=== PATIENT | male | born 1955 | race Caucasian/White ===

== ENCOUNTER 2018-06-06 15:41 | Outpatient (CLI) | payer OTHER, SELFPAY | END 2018-06-06 16:01 | PROVIDERS: PCP Family Medicine; Visit Provider Family Medicine | DX: I49.9 Cardiac arrhythmia, unspecified (principal); I47.2 Ventricular tachycardia; I49.3 Ventricular premature depolarization | CPT/HCPCS: 93225 ==

== ENCOUNTER 2018-06-10 12:06 | Outpatient (CLI) | payer OTHER, SELFPAY ==
--- NOTE | 2018-06-12 10:32 | HOLTER_ITS ---
HOLTER MONITOR DATE OF DICTATION June 12, 2018 INDICATION Arrhythmias. Analysis period - 48 hours. Baseline sinus rhythm with PVCs. Average heart rates 75 beats per minute. Minimum heart rate 58 beats per minute. Maximum heart rate 102 beats per minute. 3 short bursts of nonsustained VT. The longest 5 beats. Frequent isolated ventricular ectopy accounting for 5.2% of total beats. Rare isolated PACs. No atrial fibrillation or SVT. No significant pauses or tejas arrhythmias. No diary entries. Overall sinus rhythm with frequent ventricular ectopy. Emilia Meeks M.D. ROSALBA/brett T - 06/12/2018
== END 2018-06-10 12:26 ==
PROVIDERS: PCP Family Medicine; Visit Provider Family Medicine
DX: I49.9 Cardiac arrhythmia, unspecified (principal); I47.2 Ventricular tachycardia; I49.3 Ventricular premature depolarization
CPT/HCPCS: 93226

== ENCOUNTER 2018-06-30 17:11 | Observation (INO) | payer OTHER, SELFPAY ==
[2018-06-30] VITALS (33 sets, daily range): BP systolic 118–148; BP diastolic 68–86; PULSE 61–73; RESP 10–22; TEMP 36.4–37.2; O2SAT 93–99
[2018-06-30] MEDS: Normal Saline Flush 10 ML SYR IVP (17:43)
[2018-06-30] MEDS: Lactated Ringers 500 ML IV (17:43)
[2018-06-30 17:47] LABS: Abs Immature Grans 0.02 k/cumm (0.0-0.09); Absolute Basophil Count 0.03 k/cumm (0.0-0.2); Absolute Lymphocyte Count 3.08 k/cumm (1.2-3.4); Absolute Monocyte Count 0.69 k/cumm (0.11-0.7); Absolute Neutrophil Count 3.95 k/cumm (1.2-6.7); Basophils % 0.4; Eosinophils % 2.5; HCT 44.5 % (40.0-50.0); HGB 15.2 g/dL (13.5-17.5); Immature Grans % 0.3; Lymphocytes % 38.6; Mean Corp. HGB Concentration 34.2 g/dL (32.0-36.0); Mean Corpuscular Hemoglobin 31.7 pg (27.0-33.0); Mean Corpuscular Volume 92.9 fL (80-95); Mean Platelet Volume 10.1 fL (8.0-11.0); Monocytes % 8.7; Neutrophils % 49.5; Platelet Count 217 x1000/uL (130-400); RBC 4.79 m/cumm (4.50-6.00); RBC Distribution Width 13.3 % (11.8-14.1); White Blood Cell Count 7.97 k/cumm (4.4-10.8)
[2018-06-30 18:19] LABS: ALT 33 U/L (12-78); AST 17 U/L (15-37); Albumin 3.9 g/dL (3.4-5.0); Alkaline Phosphatase 40 U/L (46-116); Anion Gap 10.5 mmol/L (3-11); BUN 22 mg/dL (7-18); Bilirubin, Total 0.3 mg/dL (0.2-1.0); CO2 29.5 mmol/L (21.0-32.0); CREATININE 0.99 mg/dL (0.70-1.30); Calcium 9.2 mg/dL (8.5-10.1); Chloride 101 mmol/L (98-107); Glucose 148 mg/dL (70-100); Magnesium 1.8 mg/dL (1.8-2.4); NT-proBNP 114 pg/mL; Potassium 3.5 mmol/L (3.5-5.1); Sodium 141 mmol/L (136-145)
[2018-06-30 18:20] LABS: Troponin I < 0.02 ng/mL (0.00-0.06)
[2018-06-30 19:14] LABS: TSH (W/Ref FT4) 2.55 uIU/mL (0.358-3.74)
--- NOTE | 2018-06-30 19:26 | ED.GENADUL_ITS ---
Discharge Plan Disposition Patient Disposition: [facility] INPATIENT Condition: Serious Discharge Details Chief Complaint: Dizzy/Sync Clinical Impression: Pre-syncope, Acute electrocardiogram changes Primary Care Provider: Dejan Kelley ED Provider: Moody Patton Home Meds and New Rx's Prescriptions: No Action multivitamin [Once Daily] 1 EACH tablet 1 ea PO DAILY RF: 0 aspirin [Aspir-81] 81 MG tablet,delayed release (DR/EC) 81 mg PO DAILY RF: 0 ibuprofen 200 MG tablet 2 - 4 tab-cap PO PRN RF: 0 FreeStyle Lite Strips 1 EACH strip 1 ea Miscellaneous DAILY Qty: 90 RF: 3 glipizide 10 MG tablet extended release 24hr 10 mg PO DAILY Qty: 90 RF: 3 Farxiga 10 MG tablet 10 mg PO DAILY Qty: 30 RF: 11 metformin 1,000 mg tablet 1,000 mg PO BID Qty: 180 RF: 3 Medical Decision Making 62yo m with h/o DM and family h/o heart disease here with presynope, frequent episode of dizziness over the past few month. No CP. Currently hemodynamically stable but recently had episode of bradycardia in PCP office. I obtained and reviewed cardiac holter monitor from earlier this month: 3 short bursts of nonsustained VT, longest 5 beats. Concern for arrhythmia. Consider intermittent VT vs SSS. Consider ACS. ecg reviewed and interpreted by me: Sinus rhythm 60 bpm, poor R wave progression, T waves noted to be inverted with subtle depression in lead II, 3, aVF as well as V5 and V6. T wave findings in lead II, 3, aVF new compared to prior EKG from 06/04/2018. Labs reviewed and nondiagnostic. Initial troponin negative. Patient reassessed and continues to be symptom-free with no chest pain. Plan to admit for further monitoring, serial enzymes, will need stress testing, cardiology consult. 19:48 --I spoke with Dr. Ryan who will admit the patient. He requested bridging orders be placed to the floor on telemetry. Care transition to Dr. oviedo and at 748p. HPI General Mode of arrival: ambulatory . Date/Time Provider Initiated Documentation: 06/30/18 17:18 . Limitations to Documentation: no limitations . Information obtained by: patient . HPI Narrative: 62-year-old male presents with chief complaint of dizziness. Patient notes that he has had intermittent episodes of dizziness over the past few months. When he has these episodes he is typically standing and they are fairly brief. Today he had more episodes than usual. He expands about 3-4 episodes. The last episode occurred shortly before arrival in the emerge [facility] and was severe. He notes that he was standing and suddenly felt that had to lean against his truck. He felt like he was going to pass out. He had associated nausea and vomiting. His son helped him to the ground and noted that he appeared pale. Symptoms improved after a few minutes. He continues to feel fatigued. He denies CP and SOB. He was seen by his PCP a few weeks ago and noted to have an episode of bradycardia in the 30s in the office. He has a 48 holter monitor and is unsure of results. Related Data Home Medications Medication Instructions Recorded Confirmed aspirin [Aspir 81] 81 mg PO DAILY tab-cap 11/12/12 06/13/18 multivitamin [Once Daily] 1 ea PO DAILY 11/12/12 06/13/18 ibuprofen 2 - 4 tab-cap PO PRN 10/17/16 06/13/18 blood sugar diagnostic [Freestyle #90 strip 08/04/17 06/13/18 Lite Test Strips] dapagliflozin [Farxiga] 10 mg PO DAILY #30 tab-cap 10/01/17 06/13/18 glipizide 10 mg PO DAILY #90 tab-cap 10/01/17 06/13/18 metformin 1,000 mg tablet 1,000 mg PO BID #180 tab-cap 05/29/18 06/13/18 Previous Rx's Medication Instructions Recorded blood sugar diagnostic [Freestyle #90 strip 08/04/17 Lite Test Strips] dapagliflozin [Farxiga] 10 mg PO DAILY #30 tab-cap 10/01/17 glipizide 10 mg PO DAILY #90 tab-cap 10/01/17 metformin 1,000 mg tablet 1,000 mg PO BID #180 tab-cap 05/29/18 Allergies Allergy/AdvReac Type Severity Reaction Status Date / Time fluvoxamine Allergy Unknown Unverified 06/13/18 16:12 pseudoephedrine AdvReac Intermediate DIZZINESS Unverified 06/13/18 16:12 General Stated Complaint: Dizzy/Sync JOCELYN: 3 Review of Systems Constitutional Denies fever(s) Cardiovascular Reports chest pain PFSH Medical History Diabetes Hypertension Social History Smoking/Tobacco Use Status: Former Tobacco Use Exam Const General: cooperative and no acute distress HENMT Head: normocephalic and atraumatic Mouth: moist mucous membranes Eyes Conjunctivae: normal conjunctivae Sclera: normal sclerae EOM: EOM intact bilaterally Neck Neck: trachea midline and supple Resp Auscultation: clear to auscultation bilaterally, no rales, no rhonchi and no wheezes Cardio Jugular venous pressure: no JVD Rate: regular rate and not tachycardic Rhythm: regular rhythm GI Palpation: soft, not firm, no guarding, no masses, not rigid and nontender Skin General skin exam: no rashes or lesions noted Neuro General: alert, awake, oriented x3 and tone normal Extrem General: no edema Psych Appearance: grossly normal Mental Status: mental status grossly normal Speech and Movement: speech and movement normal Course Vital Signs Temperature 36.4 C L 06/30/18 17:15 Pulse 64 06/30/18 17:15 Respiratory Rate 14 06/30/18 17:15 Blood Pressure 144/86 H 06/30/18 17:15 Pulse Oximetry 98 06/30/18 17:15 Temperature 36.4 C L 06/30/18 17:15 Temperature Source Temporal Artery Scan 06/30/18 17:15 Pulse 67 06/30/18 18:31 Pulse 67 06/30/18 18:40 Respiratory Rate 12 06/30/18 18:40 Respiratory Effort 06/30/18 17:54 Respiratory Depth Normal 06/30/18 17:45 Blood Pressure 129/71 06/30/18 18:31 Blood Pressure Mean 86 06/30/18 18:31 Blood Pressure Position Sitting 06/30/18 17:15 Pulse Oximetry 96 06/30/18 18:40 Oxygen Delivery Method Room Air 06/30/18 17:15 Oxygen Flow Rate 0 06/30/18 17:15 Pain Level 0 06/30/18 17:15 Lab/Test Results Lab/Test Results: Laboratory Tests Range/Units 06/30/18 06/30/18 06/30/18 17:30 17:30 17:30 WBC (4.4-10.8) k/cumm 7.97 RBC (4.50-6.00) m/cumm 4.79 Hgb (13.5-17.5) g/dL 15.2 Hct (40.0-50.0) % 44.5 MCV (80-95) fL 92.9 MCH (27.0-33.0) pg 31.7 MCHC (32.0-36.0) g/dL 34.2 RDW (11.8-14.1) % 13.3 Plt Count (130-400) x1000/uL 217 MPV (8.0-11.0) fL 10.1 Immature Gran % 0.3 Neutrophils % 49.5 Lymphocytes % 38.6 Monocytes % 8.7 Eosinophils % 2.5 Basophils % 0.4 Absolute Neutrophils (1.2-6.7) k/cumm 3.95 Absolute Lymphocytes (1.2-3.4) k/cumm 3.08 Absolute Monocytes (0.11-0.7) k/cumm 0.69 Absolute Eosinophils (0.0-0.7) k/cumm 0.20 Absolute Basophils (0.0-0.2) k/cumm 0.03 Sodium (136-145) mmol/L 141 Potassium (3.5-5.1) mmol/L 3.5 Chloride (98-107) mmol/L 101 Carbon Dioxide (21.0-32.0) mmol/L 29.5 Anion Gap (3-11) mmol/L 10.5 BUN (7-18) mg/dL 22 H Creatinine (0.70-1.30) mg/dL 0.99 Estimated GFR/1.73 m2 (mL/min/1.73m2) >= 60.00 Glucose (70-100) mg/dL 148 H Calcium (8.5-10.1) mg/dL 9.2 Magnesium (1.8-2.4) mg/dL 1.8 Total Bilirubin (0.2-1.0) mg/dL 0.3 AST (15-37) U/L 17 ALT (12-78) U/L 33 Alkaline Phosphatase (46-116) U/L 40 L Troponin I (0.00-0.06) ng/mL < 0.02 NT-Pro-B Natriuret Pep ( - 299) pg/mL 114 Total Protein (6.4-8.2) g/dL 7.0 Albumin (3.4-5.0) g/dL 3.9 TSH (0.358-3.74) uIU/mL 2.55
[2018-06-30 21:48] LABS: Troponin I 0.02 ng/mL (0.00-0.06)
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
[2018-07-01] VITALS (9 sets, daily range): BP systolic 128–156; BP diastolic 73–91; PULSE 53–76; RESP 16–18; TEMP 36.1–37.6; O2SAT 95–98
[2018-07-01 01:15] LABS: Troponin I 0.02 ng/mL (0.00-0.06)
[2018-07-01 07:22] LABS: Abs Immature Grans 0.03 k/cumm (0.0-0.09); Absolute Basophil Count 0.03 k/cumm (0.0-0.2); Absolute Eosinophil Count 0.23 k/cumm (0.0-0.7); Absolute Lymphocyte Count 2.87 k/cumm (1.2-3.4); Absolute Monocyte Count 0.62 k/cumm (0.11-0.7); Absolute Neutrophil Count 4.63 k/cumm (1.2-6.7); Basophils % 0.4; Eosinophils % 2.7; HCT 46.2 % (40.0-50.0); HGB 15.7 g/dL (13.5-17.5); Immature Grans % 0.4; Lymphocytes % 34.1; Mean Corpuscular Hemoglobin 31.6 pg (27.0-33.0); Mean Platelet Volume 10.1 fL (8.0-11.0); Monocytes % 7.4; Platelet Count 229 x1000/uL (130-400); RBC 4.97 m/cumm (4.50-6.00); RBC Distribution Width 13.4 % (11.8-14.1); White Blood Cell Count 8.41 k/cumm (4.4-10.8)
[2018-07-01 07:24] LABS: Anion Gap 10.6 mmol/L (3-11); BUN 20 mg/dL (7-18); CO2 25.4 mmol/L (21.0-32.0); CREATININE 0.91 mg/dL (0.70-1.30); Chloride 104 mmol/L (98-107); Glucose 183 mg/dL (70-100); Potassium 4.2 mmol/L (3.5-5.1); Sodium 140 mmol/L (136-145)
[2018-07-01 07:30] LABS: Cholesterol 150 mg/dL (50-200); HDL Cholesterol 30 mg/dL (40-60); LDL CHOLESTEROL 81 mg/dL (<100); Triglyceride 363 mg/dL (30-150)
[2018-07-01 07:56] LABS: Hemoglobin A1C 7.9 % (4.5-6.2)
[2018-07-01] MEDS: Aspirin E.C. 81 MG TABEC PO (09:06)
[2018-07-01] MEDS: Multivitamin TAB 1 TAB PO (09:06)
--- NOTE | 2018-07-01 09:15 | MERGE_ITS ---
*[facility]* *[facility]* [address] [place] [address] Date of study: 07/01/2018 Transthoracic Echocardiography M-mode, complete 2D, complete spectral Doppler, and color Doppler *STUDY CONCLUSIONS* Summary: 1. Left ventricle: The cavity size was normal. Wall thickness was normal. Systolic function was normal. The estimated ejection fraction was 55-60%. Wall motion was normal; there were no regional wall motion abnormalities. Some parameters suggest diastolic dysfunction. 2. Left atrium: The atrium was mildly dilated. 3. Right ventricle: The cavity size was normal. Wall thickness was normal. Systolic function was normal. 4. Atrial septum: There was a possible, very small patent foramen ovale. 5. Pulmonary arteries: Pulmonary systolic pressure was increased, in the range of 35mm Hg to 40mm Hg. *PATIENT PRESENTATION* Height: 172.7cm ((68in) ) S/D Pressure: 156 / 91 Weight: 80.3kg ((176.6lb) ) BSA: 1.98m^2 Test start time: 09:20 AM. Test stop time: 10:15 AM. PERFORMING Unknown CONSULTING Dejan Kelley PERFORMING [facility] ORDERING Clinton Dwyer REFERRING Clinton Dwyer SPECIAL EDUCATION COORDINATOR RT Franck (R)(ANIA), FIGUEROA *PROCEDURE DATA* Procedure information: The patient was identified by two identifiers. This study was interpreted by [facility]. Pertinent images and digital data are archived for permanent storage and are available for subsequent review. Comparison was made to the study of 2004. Study status: Routine. Transthoracic echocardiography. M-mode, complete 2D, complete spectral Doppler, and color Doppler. A Transthoracic Echocardiogram was performed. Scanning was performed from the parasternal, apical, subcostal, and suprasternal notch acoustic windows. Images were obtained using an [id number] cardiac ultrasound machine. Image quality was adequate. Study completion: The patient tolerated the procedure well. There were no complications. History: PMH: Evaluate LV function pre syncope. *CARDIAC ANATOMY* Left ventricle: The cavity size was normal. Wall thickness was normal. Systolic function was normal. The estimated ejection fraction was 55-60%. Wall motion was normal; there were no regional wall motion abnormalities. Some parameters suggest diastolic dysfunction. Aortic valve: Trileaflet; mildly thickened leaflets. Mobility was not restricted. Doppler: Transvalvular velocity was within the normal range. There was no stenosis. There was no significant regurgitation. VTI ratio of LVOT to aortic valve: 0.78. Valve area (VTI): 2.5cm^2. Indexed valve area (VTI): 1.2cm^2/m^2. Peak velocity ratio of LVOT to aortic valve: 0.74. Valve area (Vmax): 2.4cm^2. Indexed valve area (Vmax): 1.2cm^2/m^2. Mean velocity ratio of LVOT to aortic valve: 0.73. Valve area (Vmean): 2.3cm^2. Indexed valve area (Vmean): 1.2cm^2/m^2. Mean gradient (S): 3.6mm Hg. Peak gradient (S): 6.7mm Hg. Aorta: Aortic root: The aortic root was normal in size. Ascending aorta: The ascending aorta was normal in size. Mitral valve: Structurally normal valve. Mobility was not restricted. Doppler: Transvalvular velocity was within the normal range. There was no evidence for stenosis. There was trivial regurgitation. Valve area by pressure half-time: 4cm^2. Indexed valve area by pressure half-time: 2cm^2/m^2. Left atrium: The atrium was mildly dilated. Atrial septum: There was a possible, very small patent foramen ovale. Right ventricle: The cavity size was normal. Wall thickness was normal. Systolic function was normal. Pulmonic valve: Structurally normal valve. Doppler: Transvalvular velocity was within the normal range. There was no evidence for stenosis. There was no significant regurgitation. Tricuspid valve: Structurally normal valve. Doppler: Transvalvular velocity was within the normal range. There was no evidence for stenosis. There was mild regurgitation. Pulmonary artery: Pulmonary systolic pressure was increased, in the range of 35mm Hg to 40mm Hg. Right atrium: The atrium was normal in size. Pericardium: There was no pericardial effusion. Systemic veins: Inferior vena cava: Well visualized. The vessel was patent and normal in size. The respirophasic diameter changes were in the normal range (greater than or equal to 50%). Baseline ECG: Normal sinus rhythm. Measurements Left ventricle Value Reference LV ID, ED, PLAX 5.6 cm 3.5 - 6.0 LV ID, ES, PLAX 3.6 cm 2.1 - 4.0 LV PW thickness, ED, PLAX 0.9 cm LV end-diastolic volume, 1-p A2C 93 ml LV ejection fraction, 1-p A2C 49 % LV end-diastolic volume, 1-p A4C 107 ml LV ejection fraction, 1-p A4C 57 % LV e', lateral 0.109 m/sec LV E/e', lateral 6 LV e', medial 0.078 m/sec LV E/e', medial 8 LV e', average 0.094 m/sec LV E/e', average 6 Ventricular septum Value Reference IVS thickness, ED, PLAX 0.8 cm LVOT Value Reference LVOT ID, A-P 2.0 cm LVOT area 3.2 cm^2 LVOT peak velocity, S 0.96 m/sec LVOT mean velocity, S 0.65 m/sec LVOT VTI, S 20.2 cm LVOT peak gradient, S 3.7 mm Hg LVOT mean gradient, S 1.9 mm Hg Stroke volume (SV), LVOT DP 64 ml Stroke index (SV/bsa), LVOT DP 32 ml/m^2 Aortic valve Value Reference Aortic valve peak velocity, S 1.3 m/sec Aortic valve mean velocity, S 0.9 m/sec Aortic valve VTI, S 26.0 cm Aortic mean gradient, S 3.6 mm Hg Aortic peak gradient, S 6.7 mm Hg VTI ratio, LVOT/AV 0.78 Aortic valve area, VTI 2.5 cm^2 Velocity ratio, peak, LVOT/AV 0.74 Aortic valve area, peak velocity 2.4 cm^2 Velocity ratio, mean, LVOT/AV 0.73 Aortic valve area, mean velocity 2.3 cm^2 Aortic valve area/bsa, mean velocity 1.2 cm^2/m^2 Aorta Value Reference Aortic root ID, ED 2.9 cm Ascending aorta ID, A-P, S 2.9 cm Left atrium Value Reference LA ID, A-P, ES 4.0 cm LA ID/bsa, A-P 2.0 cm/m^2 <=2.2 LA area, ES, A4C 20.9 cm^2 8.8 - 23.4 LA area, ES, A2C 18 cm^2 LA volume/bsa, ES, 1-p A4C 37 ml/m^2 LA volume, ES, 2-p 55 ml LA volume/bsa, ES, 2-p 28 ml/m^2 LA/aortic root ratio 1.37 Mitral valve Value Reference Mitral E-wave peak velocity 0.6 m/sec Mitral A-wave peak velocity 0.62 m/sec Mitral deceleration time 189 ms 150 - 230 Mitral pressure half-time 55 ms Mitral E/A ratio, peak 0.96 Mitral valve area, PHT, DP 4 cm^2 Tricuspid valve Value Reference Tricuspid regurg peak velocity 3 m/sec Tricuspid peak RV-RA gradient 35 mm Hg Right atrium Value Reference RA area, ES, A4C 13.1 cm^2 8.3 - 19.5 Legend: (L) and (H) lily values outside specified reference range. I have personally reviewed the images and have reviewed and edited the reported findings. Electronically signed by Bert Vallejo 07/01/2018 10:37
[2018-07-01 09:45] LABS: Troponin I 0.02 ng/mL (0.00-0.06)
--- NOTE | 2018-07-01 10:07 | PDOC.CMIN ---
- If Service Date Differs Date of service: 07/01/18 Time of Service: 10:08 Care Management Initial Assess REASON FOR HOSPITALIZATION:: Dizziness, Near Syncope PAST MEDICAL HISTORY/PAST SURGICAL HISTORY:: Diabetes mellitus (Chronic 01/30/13). Essential hypertension (Chronic 09/29/13). Hypermetropia (Chronic 09/17/12). Shoulder pain (Chronic). 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 Diabetes. Hypertension. History of rotator cuff surgery (Resolved). S/p bilateral carpal tunnel release (Resolved) PREVIOUS FUNCTIONAL STATUS/SOCIAL/FAMILY SUPPORTS:: Fidel resides with his Tasia in [place]. He has two children whom are local and supportive. 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 He comments on being active and enjoying playing hockey. Fidel is independent at baseline, drives, and manages ADL's CURRENT FUNCTIONAL STATUS:: Currently Fidel is sitting in bed when this specification writer visits. He states that he is hopeful to return home today. ADVANCE DIRECTIVES:: Appointment of Healthcare Agent on file - Tasia Rodarte is agent, Chela Rodarte is alternate Has patient been provided with information about the portal?: Yes Did the patient sign up for the portal?: No CODE STATUS:: Full Code INSURANCE COVERAGE / FINANCIAL ISSUES:: [employer] CURRENT HOME/COMMUNITY SERVICES/EQUIPMENT:: Currently Fidel has no services or medical equipment in the community. PRIMARY CARE PHYSICIAN:: Dr. Kelley POTENTIAL DISCHARGE NEEDS:: F/U appointment with PCP PATIENT/FAMILY EDUCATION NEEDS:: Review DC instructions, any limitations, and ongoing DC planning discussion. Discuss 'Ask Me Three' ANTICIPATED BARRIERS TO DISCHARGE:: None identified at this time TRANSPORTATION:: Via private vehicle with son PLAN:: Fidel will return home with no anticipated services. He will F/U with PCP and plan of care as prescribed. Fidel's son will transport him when ready.
--- NOTE | 2018-07-01 10:44 | INITIAL_ITS ---
- If Service Date Differs Date of service: 07/01/18 Time of Service: 10:08 Care Management Initial Assess REASON FOR HOSPITALIZATION:: Dizziness, Near Syncope PAST MEDICAL HISTORY/PAST SURGICAL HISTORY:: Diabetes mellitus (Chronic 01/30/13). Essential hypertension (Chronic 09/29/13). Hypermetropia (Chronic 09/17/12). Shoulder pain (Chronic). 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 Diabetes. Hypertension. History of rotator cuff surgery (Resolved). S/p bilateral carpal tunnel release (Resolved) PREVIOUS FUNCTIONAL STATUS/SOCIAL/FAMILY SUPPORTS:: Fidel resides with his Tasia in [place]. He has two children whom are local and supportive. 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 He comments on being active and enjoying playing hockey. Fidel is independent at baseline, drives, and manages ADL's CURRENT FUNCTIONAL STATUS:: Currently Fidel is sitting in bed when this service writer visits. He states that he is hopeful to return home today. ADVANCE DIRECTIVES:: Appointment of Healthcare Agent on file - Tasia Rodarte is agent, Chela Rodarte is alternate Has patient been provided with information about the portal?: Yes Did the patient sign up for the portal?: No CODE STATUS:: Full Code INSURANCE COVERAGE / FINANCIAL ISSUES:: [employer] CURRENT HOME/COMMUNITY SERVICES/EQUIPMENT:: Currently Fidel has no services or medical equipment in the community. PRIMARY CARE PHYSICIAN:: Dr. Kelley POTENTIAL DISCHARGE NEEDS:: F/U appointment with PCP PATIENT/FAMILY EDUCATION NEEDS:: Review DC instructions, any limitations, and ongoing DC planning discussion. Discuss 'Ask Me Three' ANTICIPATED BARRIERS TO DISCHARGE:: None identified at this time TRANSPORTATION:: Via private vehicle with son PLAN:: Fidel will return home with no anticipated services. He will F/U with PCP and plan of care as prescribed. Fidel's son will transport him when ready.
--- NOTE | 2018-07-01 10:56 | IN_ITS ---
Date of service: 07/01/18 Time of Service: 10:30 PT Notes Inpatient Physical Therapy Evaluation Date: 07/01/18 Referring Doctor: Dr. Fadi Enriquez PT Orders: PT CONSULT: possible BPPV Precautions: none Patient Profile/Admitting Diagnosis: Patient admitted on observation status for work up of dizziness. He has been undergoing testing this morning, and PT consult was requested for evaluation for possible BPPV. 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 He does not use assistive device and is fully independent in the community. Equipment Owned/DME: none Subjective: Patient reports episodic dizziness beginning about 3 months ago. States that symptoms seem to come on out of nowhere. He had one episode the other day when he was seated talking with friends, although admits that he was looking back and forth from one to the other. Yesterday, he was standing beside his truck when he felt immediately dizzy, nauseous and lightheaded. He was assisted to a sitting position, and states that otherwise he thinks he would have fallen. He denies dizziness getting in/out of bed, although states that wh en he rolls from his right side to his left he sometimes feels THOMASON symptoms. He denies tinnitus, sudden hearing loss, or THOMASON symptoms associated with his dizziness. Admits to multiple head traumas over the past year, including a significant fall, and a blow from a piece of equipment. States that he believes that his symptoms are related to dehydration and hypoglycemia. Objective: General Observation: Conversant and moving normally about the room during session. No lines. Mental Status: A&Ox3 Pain: 0/10 ROM: Right Upper Extremity: WFL Left Upper Extremity: WFL Right Lower Extremity: WFL Left Lower Extremity: WFL Strength: Right Upper Extremity: grossly 5/5 Left Upper Extremity: grossly 5/5 Right Lower Extremity: grossly 5/5 Left Lower Extremity: grossly 5/5 Bed Mobility/Transfers: Supine to sit: Independent Sit to supine: Independent Sit to stand: Independent Stand to sit: Chair to bed: Independent without assistive device Gait: Patient is able to ambulate independently within the room without safety concerns or need for assistive device. Balance: Static Sitting: Normal Dynamic Sitting: Normal Static Standing: Normal Dynamic Standing: Normal Special Tests: Vertebral artery testing is negative. Sustained end range rotation does not provoke any symptoms of dizziness. Coordination testing for upper and lower extremities is within normal limits. Fine motor testing for the upper extremities is within normal limits. Visual tracking is normal. VOR is normal. No symptom provocation with yes or no nods. Dunlap-Halpike testing is (-) to each side. Mobility Limitations Standardized Measure [facility] AM-PAC 6 clicks Basic Mobility Inpatient Short Form: Raw Score: 24 Standardized Score: 61.14 CMS Score: 0 CMS Modifier: CH Informed Consent/Education: Patient instructed in purpose of PT consult and plan of care. Assessment: Patient is a 62 year old male referred to physical therapy services with the diagnosis of dizziness with possible BPPV. Patient presents with subjective report suspicious for BPPV, although no clinical signs of vestibular dysfunction were identified with specific testing today. Symptoms do not appear to be due to BPPV. He is undergoing ongoing testing, and no further PT intervention is required at this time. Patient is assessed as Moderate [id number] complexity based on the following: History: 62-year-old male with severe episodic dizziness, with negative workup for vestibular dysfunction. Complicating factors include DM. Examination: No functional limitations noted during evaluation, although patient is limited in ability to perform work duties during episodes of dizziness. Presentation: evolving Decision Making: moderate complexity Plan of Care/Treatment Plan: (-) work up for BPPV despite subjective history suspicious for vestibular dysfunction. No further PT intervention required at this time. DISCHARGE RECOMMENDATIONS: home once medically stable TREATMENT CODE/TIME: 30 minutes (55279) G Codes in the area mobility of walking and moving around: current status [id number] CI; projected status GP [id number]. Discharge status (if discharging) GP [id number] CI.
--- NOTE | 2018-07-01 14:56 | DI.MRI_ITS ---
SYMPTOMS/DIAGNOSIS: NEAR SYNCOPE MRI OF THE BRAIN: Comparison is made with head CT dated . T 2 sagittal, T 1, T 2, FLAIR, diffusion and gradient echo axial sequences were performed. There is mild atrophy consistent with the patient's age. The ventricles are normal in size. No intracranial hemorrhage, mass or infarct is seen. There is no areas of restricted diffusion. There are a few tiny scattered high signal lesions in the white matter likely reflecting sequela of chronic small vessel disease. The orbits and pituitary are unremarkable. There is minimal sinus disease. The vascular flow voids appear intact. IMPRESSION: Mild atrophy and small vessel changes. No acute abnormality.
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
== END 2018-07-01 18:46 | disposition home or self-care (01) ==
LOC: ER 19:49 → MS 20:46
PROVIDERS: Admitting Provider Internal Medicine; Emergency Provider Student in an Organized Health Care Education/Training Program; PCP Family Medicine; Visit Provider Internal Medicine
DX: R42 Dizziness and giddiness (principal); R55 Syncope and collapse; I49.3 Ventricular premature depolarization; E11.9 Type 2 diabetes mellitus without complications; Z79.84 Long term (current) use of oral hypoglycemic drugs; I51.7 Cardiomegaly
CPT/HCPCS: 36415; 36416; 80048; 80053; 80061; 82962; 83721; 93005; 96360; 97161; 99217; 99220; 99285; 70551; 83036; 83735; 83880; 84443; 84484; 85025; 93010; 93306; G0378

== ENCOUNTER 2018-11-26 10:34 | Outpatient (CLI) | payer OTHER, SELFPAY ==
[2018-11-27 09:08] LABS: Hemoglobin A1C 9.5 % (4.5-6.2)
== END 2018-11-26 10:54 ==
PROVIDERS: PCP Family Medicine; Visit Provider Family Medicine
DX: E11.9 Type 2 diabetes mellitus without complications (principal)
CPT/HCPCS: 36415; 83036

== ENCOUNTER 2019-06-02 08:12 | Outpatient (CLI) | payer OTHER, SELFPAY ==
[2019-06-04 14:23] LABS: C-Peptide 0.8 ng/mL (1.1 - 4.4)
[2019-06-15 11:40] LABS: ZnT8 Antibodies <15.0 U/mL (<15.0)
== END 2019-06-02 08:32 ==
PROVIDERS: PCP Family Medicine; Visit Provider Family Medicine
DX: E11.9 Type 2 diabetes mellitus without complications (principal)
CPT/HCPCS: 36415; 86337; 86341; 84681

== ENCOUNTER 2019-08-21 11:33 | Outpatient (CLI) | payer MEDICARE, SELFPAY ==
[2019-08-21 12:51] LABS: Hemoglobin A1C 9.1 % (3.8-5.6)
[2019-08-21 12:52] LABS: CREATININE 0.98 mg/dL (0.70-1.30)
[2019-08-21 12:59] LABS: Microalb ug/mg Crea 18.1 ug/mg Cr
== END 2019-08-21 11:53 ==
PROVIDERS: PCP Family Medicine; Visit Provider Family Medicine
DX: E11.9 Type 2 diabetes mellitus without complications (principal)
CPT/HCPCS: 36415; 82043; 82565; 82570; 83036

== ENCOUNTER 2020-02-17 16:07 | Outpatient (REF) | payer MEDICARE, SELFPAY ==
[2020-02-17 22:21] LABS: Calculated LDL 71 mg/dL (<100); Cholesterol 162 mg/dL (<200); HDL Cholesterol 32 mg/dL (40-60); Triglyceride 296 mg/dL (<150)
== END 2020-02-17 16:27 ==
LOC: LBN 16:07
PROVIDERS: PCP Family Medicine; Visit Provider Family Medicine
DX: E78.5 Hyperlipidemia, unspecified (principal)
CPT/HCPCS: 80061

== ENCOUNTER 2020-07-26 02:18 | Outpatient (CLI) | payer OTHER, SELFPAY ==
[2020-07-26 13:03] LABS: Hemoglobin A1C 9.1 % (<5.7)
== END 2020-07-26 02:19 | disposition home or self-care (01) ==
PROVIDERS: PCP Family Medicine; Visit Provider Family Medicine
DX: R73.9 Hyperglycemia, unspecified (principal)
CPT/HCPCS: 36415; 83036

== ENCOUNTER 2021-09-26 05:35 | Outpatient (CLI) | payer MEDICARE, SELFPAY ==
[2021-09-26 08:41] LABS: Hemoglobin A1C 8.5 % (<5.7)
[2021-09-26 09:26] LABS: CREATININE 0.9 mg/dL (0.70-1.30); Calculated LDL 46 mg/dL (<100); Cholesterol 153 mg/dL (<200); HDL Cholesterol 30 mg/dL (40-60); Potassium 4.2 mmol/L (3.5-5.1); Triglyceride 388 mg/dL (<150)
== END 2021-09-26 05:36 | disposition home or self-care (01) ==
LOC: LBO 05:35
PROVIDERS: PCP Family Medicine; Visit Provider Family Medicine
DX: E78.5 Hyperlipidemia, unspecified (principal); I10 Essential (primary) hypertension; R73.9 Hyperglycemia, unspecified
CPT/HCPCS: 36415; 80061; 82565; 83036; 84132

== ENCOUNTER 2022-02-24 13:44 | Outpatient (REF) | payer MEDICARE, SELFPAY ==
[2022-02-24 19:29] LABS: ALT 32 U/L (16-63); AST 15 U/L (15-37); Anion Gap 11.9 mmol/L (3-11); BUN 22 mg/dL (7-18); CO2 25.1 mmol/L (21.0-32.0); CREATININE 0.9 mg/dL (0.70-1.30); Calcium 9.6 mg/dL (8.5-10.1); Chloride 100 mmol/L (98-107); Estimated GFR 93.03 (mL/min/1.73m2); Glucose 208 mg/dL (74-106); Potassium 4.8 mmol/L (3.5-5.1); Sodium 137 mmol/L (136-145)
[2022-02-24 19:51] LABS: Hemoglobin A1C 7.7 % (<5.7)
== END 2022-02-24 13:45 | disposition home or self-care (01) ==
LOC: LBN 13:44
PROVIDERS: PCP Family Medicine; Visit Provider Nurse Practitioner Family
DX: K76.0 Fatty (change of) liver, not elsewhere classified; E78.5 Hyperlipidemia, unspecified
CPT/HCPCS: 80048; 83036; 84450; 84460; 85025

== ENCOUNTER 2023-04-30 09:47 | Outpatient (CLI) | payer MEDICARE, SELFPAY ==
[2023-04-30 12:20] LABS: Hemoglobin A1C 8.9 % (<5.7)
[2023-04-30 12:28] LABS: CREATININE 1.1 mg/dL (0.70-1.30); Calculated LDL 97 mg/dL (<100); Cholesterol 179 mg/dL (<200); Estimated GFR 72.67 (mL/min/1.73m2); HDL Cholesterol 41 mg/dL (40-60); Potassium 4.3 mmol/L (3.5-5.1); Triglyceride 208 mg/dL (<150)
== END 2023-04-30 09:48 | disposition home or self-care (01) ==
LOC: LOS 09:47
PROVIDERS: PCP Family Medicine; Referring Provider Family Medicine; Visit Provider Family Medicine
DX: E78.5 Hyperlipidemia, unspecified (principal); I10 Essential (primary) hypertension; E11.51 Type 2 diabetes mellitus with diabetic peripheral angiopathy without gangrene
CPT/HCPCS: 36415; 80061; 82565; 83036; 84132

== ENCOUNTER 2023-04-30 20:24 | Outpatient (REF) | payer MEDICARE, SELFPAY ==
[2023-04-30 13:18] LABS: COMMENT (LAB VIEW ONLY) 192.18 mg/dL; Microalb ug/mg Crea 24.8 ug/mg Cr
== END 2023-04-30 20:25 | disposition home or self-care (01) ==
LOC: LBN 20:24
PROVIDERS: PCP Family Medicine; Visit Provider Family Medicine
DX: E11.9 Type 2 diabetes mellitus without complications (principal)
CPT/HCPCS: 82043; 82570

== ENCOUNTER → 2023-11-21 00:16 | Outpatient (CLI) | payer MEDICARE, SELFPAY ==
--- NOTE | 2023-11-21 09:03 | DI.RAD_ITS ---
Exam(s) XR LUMBAR SPINE COMPLETE EXAM: XR LUMBAR SPINE COMPLETE CLINICAL HISTORY: rt low back pain, M54.9 dorsalgia. TECHNIQUE: 2D digital imaging was performed of the lumbar spine. Five images were obtained. AP, la teral, right oblique, left oblique and L5-S1 spot views were obtained. COMPARISON: No exams were available for comparison FINDINGS: BONES: No fracture or destructive lesion. There are endplate osteophytes at several levels of the lum bar spine particularly L4-5 and L5-S1. There are degenerative changes of the facets seen at L5-S1. DISKS: There is narrowing of the L5-S1 disc space. ALIGNMENT: Lumbar spinal alignment is within normal limits. No spondylolysis or spondylolisthesis. SOFT TISSUE: Normal. IMPRESSION: There are degenerative changes seen in the lumbar spine. DATA REPOSITORY: RADIATION DOSE DELIVERED:
--- NOTE | 2023-11-21 09:03 | DI.RAD_ITS ---
Exam(s) XR HIP RT COMPLETE AP PELVIS EXAM: XR HIP RT COMPLETE AP PELVIS CLINICAL HISTORY: rt low back/hip pain, chronic pain, M25.559, G89.29. TECHNIQUE: 2D digital imaging was performed of the right hip. Two images were obtained. AP pelvis a nd lateral right hip views were obtained. COMPARISON: No exams were available for comparison FINDINGS: BONES: No acute fracture is present. No bony destructive lesion is seen. JOINTS: No dislocation present. There is mild narrowing of the hip joints bilaterally. The hips are otherwise well maintained. The sacroiliac joints and symphysis pubis are unremarkable. SOFT TISSUE: Vascular calcifications are present. IMPRESSION: Mild narrowing of the hip joints bilaterally, left greater than right. DATA REPOSITORY: RADIATION DOSE DELIVERED:
== END ==
PROVIDERS: PCP Family Medicine; Visit Provider Family Medicine
DX: M51.36 Other intervertebral disc degeneration, lumbar region (principal); M16.0 Bilateral primary osteoarthritis of hip
CPT/HCPCS: 72110; 73502

== ENCOUNTER 2024-05-05 02:38 | Outpatient (CLI) | payer MEDICARE, SELFPAY ==
[2024-05-05 13:07] LABS: Vitamin B12 689 pg/mL (193-986)
[2024-05-05 21:47] LABS: Lab Add On Test DONE
[2024-05-05 21:57] LABS: Estimated GFR 80.97 (mL/min/1.73m2); Potassium 4.1 mmol/L (3.5-5.1)
== END 2024-05-05 02:39 | disposition home or self-care (01) ==
LOC: LOS 02:38
PROVIDERS: PCP Family Medicine; Visit Provider Family Medicine
DX: D64.9 Anemia, unspecified (principal); E11.9 Type 2 diabetes mellitus without complications
CPT/HCPCS: 36415; 82565; 82607; 84132

== ENCOUNTER 2024-11-17 11:06 | Outpatient (CLI) | payer MEDICARE, SELFPAY ==
--- NOTE | 2024-11-17 11:00 | RT.EKG_ITS ---
APPROVED REPORT Exam: Resting ECG Reason for Exam: bradycardia Patient Location: O HR:79 bpm ECG Measurements Heart Rate 79 AXIS HI 206 P 18 QRSd 128 QRS -44 QT 404 T 124 QTc 464 Conclusion Sinus rhythm...normal P axis, V-rate 50- 99 Ventricular bigeminy...bigeminy string>4 w/ V complexes Left bundle branch block...QRSd>120, broad/notched R
== END 2024-11-17 11:07 | disposition home or self-care (01) ==
LOC: DI.CM 11:07
PROVIDERS: PCP Family Medicine; Visit Provider Family Medicine
DX: R00.1 Bradycardia, unspecified (principal); I49.8 Other specified cardiac arrhythmias; I44.7 Left bundle-branch block, unspecified
CPT/HCPCS: 93010

== ENCOUNTER 2024-11-17 11:24 | Outpatient (CLI) | payer MEDICARE, SELFPAY ==
[2024-11-17 12:57] LABS: Anion Gap 8.7 mmol/L (3-11); BUN 24 mg/dL (7-18); CO2 27.3 mmol/L (21.0-32.0); CREATININE 1.1 mg/dL (0.70-1.30); Calcium 9.2 mg/dL (8.5-10.1); Chloride 103 mmol/L (98-107); Estimated GFR 71.77 (mL/min/1.73m2); Glucose 134 mg/dL (74-106); Potassium 4.2 mmol/L (3.5-5.1); Sodium 139 mmol/L (136-145)
[2024-11-18 10:13] LABS: Hepatitis C Ab w Rflx HCV PCR Negative (Negative)
== END 2024-11-17 11:25 | disposition home or self-care (01) ==
LOC: LOS 11:25
PROVIDERS: PCP Family Medicine; Referring Provider Family Medicine; Visit Provider Family Medicine
DX: Z11.59 Encounter for screening for other viral diseases (principal); E87.1 Hypo-osmolality and hyponatremia; E83.42 Hypomagnesemia
CPT/HCPCS: 36415; 80048; 86803; 83735